=== PATIENT | male | born 2000 | race Caucasian/White ===

== ENCOUNTER 2018-01-30 13:07 | Inpatient (IN) | payer MEDICAID ==
[~2018-01-30] VITALS: Ht 188 cm; Wt 110.2 kg
[2018-01-30 14:18] LABS: BASOPHIL % 0.3 % (0-2); CALCIUM 9.8 mg/dL (8.5-10.1); CHLORIDE SERUM 99 mmol/L (98-107); CREATININE SERUM 1.5 mg/dL (0.7-1.3); GFR1 > 60 mL/min; GLUCOSE SERUM 94 mg/dL (74-106); PLATELET COUNT 240 x10^3mcL (130-400); POTASSIUM SERUM 3.8 mmol/L (3.5-5.1); RED CELL DISTRIBUTION WIDTH 13.9 % (11.5-14.5); SODIUM SERUM 136 mmol/L (136-145)
[2018-01-30 14:23] LABS: ALBUMIN 4.3 g/dL (3.4-5.0); ALKALINE PHOSPHATASE 81 U/L (46-116); ALT/SGPT 44 U/L (16-63); AST/SGOT 43 U/L (15-37); BILIRUBIN TOTAL 0.6 mg/dL (0.20-1.00)
[2018-01-30 14:25] LABS: TOTAL PROTEIN, SERUM 8.6 g/dL (6.4-8.2)
[2018-01-30 14:29] LABS: UA SPECIFIC GRAVITY 1.025 (1.005-1.035); microscopic required? YES; urine erythrocyte 1+ (NEGATIVE)
[2018-01-30 14:39] LABS: AMPHETAMINE QUAL UR POSITIVE (See below)
[2018-01-30 16:24] VITALS: BP 126/77
[2018-01-30 16:30] LABS: PHOSPHOROUS 2.8 mg/dL (2.5-4.9)
[2018-01-30 16:31] VITALS: Ht 188 cm; Wt 110.2 kg
[2018-01-30 16:41] LABS: FREE T4 0.88 ng/dL (0.76-1.46); T3 TOTAL 1.03 ng/mL; T4(THYROXINE) 5.8 ug/dL (4.7-13.3)
[2018-01-30 21:05] VITALS: BP 126/42
[2018-01-31 05:24] VITALS: BP 119/38
[2018-01-31 06:13] LABS: BASOPHIL % 0.6 % (0-2); PLATELET COUNT 229 x10^3mcL (130-400); RED CELL DISTRIBUTION WIDTH 13.8 % (11.5-14.5)
[2018-01-31 06:36] LABS: CALCIUM 8.9 mg/dL (8.5-10.1); CARBON DIOXIDE 27.3 mmol/L (21-32); CHLORIDE SERUM 103 mmol/L (98-107); CREATININE SERUM 1.2 mg/dL (0.7-1.3); GFR1 > 60 mL/min; GLUCOSE SERUM 77 mg/dL (74-106); POTASSIUM SERUM 3.6 mmol/L (3.5-5.1); SODIUM SERUM 141 mmol/L (136-145)
[2018-01-31 08:30] VITALS: BP 117/38
[2018-01-31 12:06] VITALS: BP 107/40
[2018-01-31 13:49] VITALS: BP 107/40
== END 2018-01-31 16:10 | disposition home or self-care (01) | DRG 48 ==
LOC: ED 13:07 → DU 15:50
PROVIDERS: Emergency Medicine; Family Medicine
DX: G90.9 Disorder of the autonomic nervous system, unspecified (principal); N17.0 Acute kidney failure with tubular necrosis; F14.10 Cocaine abuse, uncomplicated; F15.10 Other stimulant abuse, uncomplicated; F12.10 Cannabis abuse, uncomplicated; R80.9 Proteinuria, unspecified
CPT/HCPCS: 84439; J1953; J2405; J3490; J7030; Q0092

== ENCOUNTER 2019-08-26 00:12 | Inpatient (IN) | payer BC, SELFPAY ==
[~2019-08-26] VITALS: Ht 188 cm; Wt 144.2 kg
[2019-08-26 00:14] VITALS: Ht 188 cm; Wt 144.2 kg
--- NOTE | 2019-08-26 00:27 | NUR ---
PT PRESENTS TO ED BIBA WITH C/C OVERDOSE. PT FAMILY CALLED 911 WHEN PATIENT WAS FOUND UNRESPONSIVE ON THE COUCH. FAMILY PERFORMED 2 ROUNDS CPR AND WHEN EMS ARRIVED PATIENT HAD AGONAL RESP RR 8 AND PINPOINT PUPILS. 2MG IM NARCAN GIVEN AND 1MG IVP NARCAN GIVEN. PATIENT IMMEDIATELY RESPONSIVE WITH [facility]-15 ADN RR-17. PATIENT ADMITTED TO SNORTING 1/4 PILL UNKNOWN DOSAGE OF OXYCONTIN. PATIENT DENIES SI OR SUICIDE ATTEMPT. REPORTS "I JUST WANTED TO GET HIGH." IV NOTED TO RAC, 18G, INTACT. 93% ON ROOM AIR UPON ARRIVAL, PLACED ON 2L NC, O2 SAT INCREASED TO 95%. PATIENT SITTING UP IN BED, AWAKE AND ALERT, SLIGHTLY LETHARGIC. DENIES ANY OTHER COMPLAINTS. CONNECTED TO MONITOR. MD VIDES AT BEDSIDE FOR MSE.
--- NOTE | 2019-08-26 00:35 | NUR ---
PT PROVIDED WITH URINAL AND INSTRUCTED TO PROVIDE URINE SAMPLE FRANK.
--- NOTE | 2019-08-26 00:51 | NUR ---
PATIENT C/O NAUSEA. MD VIDES AWARE. PATIENT ONLY ABLE TO PROVIDE 5CC URINE. INSTRUCTED TO NOTIFY WHEN ABLE TO GIVE A LARGER SAMPLE.
--- NOTE | 2019-08-26 00:53 | NUR ---
RT AT BEDSIDE.
--- NOTE | 2019-08-26 01:10 | NUR ---
LAB AT BEDSIDE.
[2019-08-26 01:38] LABS: BASOPHIL % 0.3 % (0-2); PLATELET COUNT 212 x10^3mcL (130-400)
[2019-08-26 01:49] LABS: RED CELL DISTRIBUTION WIDTH 15.4 % (11.5-14.5)
[2019-08-26 01:50] LABS: CALCIUM 8.9 mg/dL (8.5-10.1); CARBON DIOXIDE 29.7 mmol/L (21-32); CHLORIDE SERUM 101 mmol/L (98-107); CREATININE SERUM 1.5 mg/dL (0.7-1.3); GFR1 > 60 mL/min; GLUCOSE SERUM 86 mg/dL (74-106); POTASSIUM SERUM 3.7 mmol/L (3.5-5.1); SODIUM SERUM 140 mmol/L (136-145)
[2019-08-26 02:01] LABS: ALBUMIN 3.8 g/dL (3.4-5.0); ALKALINE PHOSPHATASE 37 U/L (46-116); ALT/SGPT 60 U/L (16-63); AST/SGOT 43 U/L (15-37); BILIRUBIN TOTAL 0.26 mg/dL (0.20-1.00); TOTAL PROTEIN, SERUM 7.3 g/dL (6.4-8.2)
[2019-08-26 02:04] LABS: UA SPECIFIC GRAVITY 1.025 (1.005-1.035); microscopic required? YES; urine erythrocyte NEGATIVE (NEGATIVE)
--- NOTE | 2019-08-26 02:15 | NUR ---
XRAY AT BEDSIDE.
[2019-08-26 02:19] LABS: AMPHETAMINE QUAL UR NONE DETECTED (See below)
--- NOTE | 2019-08-26 02:45 | NUR ---
PATIENT TAKEN TO CT.
--- NOTE | 2019-08-26 03:25 | NUR ---
MD VIDES AWARE OF CT ANGIO RESULT. SURGICAL MASK PLACED ON PATIENT. LAB,RT,XRAY,CT AND OTHER STAFF IN ED THAT CAME IN CONTACT WITH THE PATIENT AWARE. (SEE COVID ROOM ENTRANCE SHEET FOR DETAILS) PT DENIES COUGH, FEVER, RECENT TRAVEL OR RECENT CONTACT WITH COVID-19 + PATIENT. UPON PATIENTS REQUEST PATIENTS MOTHER NOTIFIED OF ADMISSION. PATIENT EDUCATED ON CT RESULTS WITH MD VIDES AT BEDSIDE.
--- NOTE | 2019-08-26 03:57 | NUR ---
LAB AT BEDSIDE,
--- NOTE | 2019-08-26 04:06 | NUR ---
REPORT CALLED AND GIVEN TO ELHAM RIVERA TO ASSUME CARE.
[2019-08-26 04:17] LABS: T3 TOTAL 1.4 ng/mL
[2019-08-26 04:18] LABS: FREE T4 0.95 ng/dL (0.76-1.46); T4(THYROXINE) 5.8 ug/dL (4.7-13.3)
[2019-08-26 04:26] LABS: C REACTIVE PROTEIN 2.5 mg/dL (<=0.9)
[2019-08-26] MEDS ORDERED: ZOLOFT25 MG (04:44)
[2019-08-26] MEDS ORDERED: NEURONTIN100 MG (04:45)
[2019-08-26] MEDS ORDERED: HYDROXYZINE10 M1 (04:46)
--- NOTE | 2019-08-26 05:38 | NUR ---
REC'D PT FROM ED VIA [facility] ACCOMPANIED BY NURSE. CONTACT AND DROPLET PREC INITIATED FOR COVID R/O. PT AMBULATED FROM GURNEY TO BED WITH STEADY GAIT. ADM FOR OD- DENIES INTENTIONAL OD OR SI. REPORTS SNORING 1/4 TAB OXYCONTIN AND TAKING ABOUT 6 MG OF XANAX BEFOREHAND. PT BELIEVES HE RECEIVED FENTANYL INSTEAD OF OXYCONTIN. AAOX4, SPEECH CLEAR, FOLLOWS COMMANDS. TELE 14. DENIES CP, DIZZINESS, OR PALPITATIONS. DENIES RESP DISTRESS OR SOB. BREATHING EVEN/UNLABORED ON 2L O2 VIA NC, SPO2 96%. 91% ON RA. NO EDEMA NOTED. ABD SOFT/ROUND. DENIES ABD PAIN, TENDERNESS, OR N/V. VOIDING FREELY. SKIN INTACT. IV TO RAC PATENT AND INFUSING REMAINDER OF ZITHROMAX FROM ED. ORIENTED TO DEVICES AND SURROUNDINGS. CALL LIGHT WITHIN REACH, BED AT LOWEST POSITION. WILL CONTINUE TO MONITOR.
[2019-08-26 05:44] VITALS: BP 137/73
[2019-08-26 06:20] VITALS: BP 137/73
[2019-08-26 06:48] LABS: CALCIUM 8.7 mg/dL (8.5-10.1); CARBON DIOXIDE 28.3 mmol/L (21-32); CHLORIDE SERUM 103 mmol/L (98-107); CREATININE SERUM 1.4 mg/dL (0.7-1.3); GFR1 > 60 mL/min; GLUCOSE SERUM 87 mg/dL (74-106); MAGNESIUM 1.9 mg/dL (1.8-2.4); PHOSPHOROUS 3.9 mg/dL (2.5-4.9); POTASSIUM SERUM 4.1 mmol/L (3.5-5.1); SODIUM SERUM 139 mmol/L (136-145)
[2019-08-26 06:49] LABS: BASOPHIL % 0.5 % (0-2); PLATELET COUNT 206 x10^3mcL (130-400)
[2019-08-26 06:56] LABS: ALBUMIN 3.7 g/dL (3.4-5.0); BILIRUBIN DIRECT 0.13 mg/dL (0.0-0.2); BILIRUBIN TOTAL 0.33 mg/dL (0.20-1.00); TOTAL PROTEIN, SERUM 6.6 g/dL (6.4-8.2)
[2019-08-26 06:57] LABS: RED CELL DISTRIBUTION WIDTH 15.4 % (11.5-14.5)
--- NOTE | 2019-08-26 06:59 | NUR ---
PT RESTING IN BED WITH EYES CLOSED. SNORING. BREATHING EVEN/UNLABORED ON RA. CALL LIGHT WITHIN REACH, BED AT LOWEST POSITION. WILL ENDORSE TO DAY NURSE.
--- NOTE | 2019-08-26 07:30 | NUR ---
PT ENDORSE TO ME THIS MORNING, LAYING IN BED RESTING, AA/O X4, LAYING IN BED RESTING, SZ PREC INPLACE. TELE 14 NSR NOTED /DENIES ANY CP OR PRESSURE. BREATHING EVEN AND UNLABORED ON RA, NO ACUTE RESP DISTRESS OR SOB NOTED. VOIDS FREELY. AMB. IV TO THE RAC INTACT AND PATENT/ INFUSING AT 50 ML/HR NO REDNESS OR SWELLING NOTED. CALL LIGHT IN REACH. BED IN LOW POSITION. REMAINS ON ISOLATION. WILL CONTINUE TO MONITOR.
[2019-08-26 09:27] VITALS: BP 127/77
--- NOTE | 2019-08-26 10:00 | NUR ---
PT TOLERATED 100% OF BF, DR. NOLASCO AT BEDSIDE GIVING UPDATE. PT MOTHER CALLED AND UPDATE WAS ALSO GIVEN. WILL CONTINUE TO MONITOR.
[2019-08-26 13:00] VITALS: BP 130/76
--- NOTE | 2019-08-26 14:50 | NUR ---
PT TOLERATED 100% OF LUNCH, DENIES ANY CP OR PRESSURE. REMAINS ON RA, NO ACUTE RESP DISTRESS OR SOB NOTED. IV TO THE RAC INTACT AND PATENT/ INFUSING AT 50ML/HR, NO REDNESS OR SWELLING NOTED. WILL CONTINUE TO MONITOR.
[2019-08-26 18:01] VITALS: BP 129/72
--- NOTE | 2019-08-26 18:36 | NUR ---
NO ACUTE CHANGES AT THIS TIME, NO ACUTE RESP DISTRESS OR SOB NOTED. DENIES ANY CP OR PRESSURE. IV TO THE RAC INFUSING AT 50 ML/HR, NO REDNESS OR SWELLING NOTED. WILL ENDORSE TO INCOMING RN.
--- NOTE | 2019-08-26 21:00 | NUR ---
PT IN NO ACUTE DISTRESS. EVEN AND UNLABORED BREATHING, 95% ON ROOM AIR. PT DENIES ANY PAIN, SOB OR CHEST PAIN AT THIS CURRENT MOMENT. CONTACT/DROPLET PRECAUTIONS IN PLACE. TELE #14, 60. IV RAC PATENT AND INFUSING WELL. BED IN LOWEST POSITION. CALL LIGHT WITHIN REACCH.
[2019-08-26 21:18] VITALS: BP 117/71
--- NOTE | 2019-08-27 05:24 | NUR ---
I HAVE REVIEWED THE DATA COLLECTION BY mahesh (NAME): lesly partida ENTERED ON (DATE/TIME):08/27/2019 0158h I CONCUR WITH THE DATA AND ANY EXCEPTIONS OR COMMENTS ARE LISTED BELOW:
[2019-08-27 06:31] LABS: BASOPHIL % 0.8 % (0-2); PLATELET COUNT 212 x10^3mcL (130-400)
[2019-08-27 06:43] LABS: RED CELL DISTRIBUTION WIDTH 15.3 % (11.5-14.5)
[2019-08-27 07:00] LABS: CALCIUM 9.1 mg/dL (8.5-10.1); CARBON DIOXIDE 31.3 mmol/L (21-32); CHLORIDE SERUM 104 mmol/L (98-107); CREATININE SERUM 1.3 mg/dL (0.7-1.3); GFR1 > 60 mL/min; GLUCOSE SERUM 81 mg/dL (74-106); MAGNESIUM 1.8 mg/dL (1.8-2.4); PHOSPHOROUS 2.9 mg/dL (2.5-4.9); POTASSIUM SERUM 4.7 mmol/L (3.5-5.1); SODIUM SERUM 142 mmol/L (136-145)
[2019-08-27 07:02] VITALS: BP 116/69
[2019-08-27 09:11] VITALS: BP 126/76
--- NOTE | 2019-08-27 09:14 | NUR ---
RECEIVED IN NO ACUTE RESP. DISTRESS. AWAKE, ALERT AND ORIENTED. VS WNL. IVF INFUSING WELL AND SITE CLEAR.NO ACTIVE SEIZURE ACTIVITIES NOTED. SZ PREC. MAINTAINED. DROPLET ISOLATION PREC. IN PLACE. CALL LIGHT WITHIN REACH. WILL CONTINUE WITH PLAN OF CARE.
[2019-08-27 12:47] VITALS: BP 132/94
--- NOTE | 2019-08-27 12:48 | NUR ---
PT APPEARS VERY ANXIOUS, WANT TO KNOW WHEN HE CAN GO HOME. PT REQUESTED FOR SOMETHING TO CALM HIM DOWN, MEDICATED WITH ATIVAN.NO C/O PAIN AT THIS TIME. VS WNL. IVF INFUSING WELL.
[2019-08-27] MEDS ORDERED: AUGMENTIN 875-1 EACH PO (14:38)
[2019-08-27] MEDS ORDERED: ATA25 PO (15:13)
[2019-08-27] MEDS ORDERED: NEU100 PO (15:13)
--- NOTE | 2019-08-27 18:08 | NUR ---
PT WILL BE DC'D HOME THIS PM. DC INSTRUCTIONS REVIEWED WITH PT. PT INSTRUCTED TO CONTINUE STAYING QUARANTINED FOR THE NEXT 12-14 DAYS. INSTRUCTED TO RETURN TO THE NEAREST ER IF SYMPTOMS WORSENS.ALSO MADE AWARE THAT THE DOCTOR WILL NOTIFY HIM OF COVID TEST RESULTS WHEN THEY BECOME AVAILABLE. PT VERBALIZED UNDERSTANDING. RX TO PHARMACY. HL REMOVED AND SITE CLEAR. NO C/O PAIN OR DISCOMFORT AT THIS TIME.NO CHANGES IN VS. PT IS WAITING FOR RIDE HOME.
== END 2019-08-27 18:45 | disposition home or self-care (01) | DRG 917 ==
LOC: ED 00:12 → DU 03:35
PROVIDERS: Specialist; ADMIT Family Medicine
DX: T42.4X1A Poisoning by benzodiazepines, accidental (unintentional), initial encounter (principal); N17.0 Acute kidney failure with tubular necrosis; J96.02 Acute respiratory failure with hypercapnia; J96.01 Acute respiratory failure with hypoxia; G92 Toxic encephalopathy; J69.0 Pneumonitis due to inhalation of food and vomit; E02 Subclinical iodine-deficiency hypothyroidism; F32.9 Major depressive disorder, single episode, unspecified; E11.9 Type 2 diabetes mellitus without complications; T40.2X1A Poisoning by other opioids, accidental (unintentional), initial encounter; F41.8 Other specified anxiety disorders; Y92.018 Other place in single-family (private) house as the place of occurrence of the external cause; Z68.38 Body mass index [BMI] 38.0-38.9, adult; Z87.891 Personal history of nicotine dependence; Z03.818 Encounter for observation for suspected exposure to other biological agents ruled out; Z79.84 Long term (current) use of oral hypoglycemic drugs
CPT/HCPCS: 36600; 84439; 85378; 87804; G0378; G0480; J0295; J0456; J0696; J2543; J3535; J7030; J7050; Q0092; Q9967; U0002